=== PATIENT | female | born 1990 | race African-American/Black ===

== ENCOUNTER 2017-04-27 23:25 | Observation (INO) | payer MEDICAID ==
[~2017-04-27] VITALS: Ht 165.1 cm; Wt 68.9 kg
[2017-04-28] MEDS ORDERED: PREN-88 PO (00:47)
== END 2017-04-28 01:10 | disposition home or self-care (01) ==
LOC: L&D 23:25
PROVIDERS: ADMIT Obstetrics & Gynecology; ATTEND Obstetrics & Gynecology
DX: Z34.90 Encounter for supervision of normal pregnancy, unspecified, unspecified trimester (principal); Z3A.00 Weeks of gestation of pregnancy not specified
CPT/HCPCS: 99281; G0378

== ENCOUNTER 2021-02-20 16:38 | Emergency (ER) | payer MEDICAID ==
[~2021-02-20] VITALS: Ht 165.1 cm; Wt 54.0 kg
[~2021-02-20 16:38] MED LIST: PREN-88 PO
[2021-02-20 17:35] LABS: BASOPHILS % 0.6 % (0.0-2.0); EOSINOPHILS % 0.9 % (0.0-5.0); LYMPHOCYTES % 24.8 % (20.0-50.0); MEAN CORPUSCULAR HEMOGLOBIN 28.9 pg (28.0-32.0); MEAN CORPUSCULAR VOLUME 84.8 fL (81.0-99.0); MEAN PLATELET VOLUME 7.1 fl (7.4-10.4); MONOCYTES % 6.6 % (2.0-8.0); NEUTROPHILS % 67.1 % (40.0-76.0); PLATELET 289 x1000/uL (130-400); RED BLOOD CELL COUNT 4.48 mill/uL (4.2-5.4); RED CELL DISTRIBUTION WIDTH 13.7 % (11.6-14.6)
[2021-02-20 17:41] LABS: CHLORIDE 105 mEq/L (98-107)
[2021-02-20 17:52] LABS: HCG SCREEN NEGATIVE
[2021-02-20] MEDS ORDERED: LORAZEPAM 1MG TABLET PO ONE (18:45)
[2021-02-20 20:07] VITALS: BP 134/78
== END 2021-02-20 20:09 | disposition home or self-care (01) ==
LOC: ER 16:38
DX: F43.29 Adjustment disorder with other symptoms (principal); R06.00 Dyspnea, unspecified; R07.89 Other chest pain; R00.0 Tachycardia, unspecified; Z63.4 Disappearance and death of family member; R03.0 Elevated blood-pressure reading, without diagnosis of hypertension; E87.6 Hypokalemia; R73.9 Hyperglycemia, unspecified; Z83.3 Family history of diabetes mellitus
CPT/HCPCS: 36415; 71045; 80048; 84484; 84703; 85025; 85379; 93005; 99285